=== PATIENT | female | born 1960 | race Caucasian/White ===

== ENCOUNTER 2016-08-22 18:59 | Observation (INO) ==
[2016-08-22] MEDS ORDERED: ZOFRAN IV PRN (19:57)
[2016-08-22] MEDS ORDERED: PERCOCET-10 PO PRN (19:57)
[2016-08-22] MEDS ORDERED: DOXYCYCLINE 100 MG in NS 250 ML IV SCH (20:00)
[2016-08-22] MEDS ORDERED: MOTRIN PO SCH (21:00)
[2016-08-22 21:14] LABS: AGAP 11; ALKALINE PHOSPHATASE 86 U/L (32-104); BUN 13 mg/dL (8-22); CALCIUM 9.1 mg/dL (8.8-10.2); CHLORIDE 99 mmol/L (98-107); COSMO 272; GOT 21 U/L (10-30); GPT 23 U/L (10-36); POTASSIUM 3.6 mmol/L (3.5-5.1); SODIUM 136 mmol/L (136-145); TCO2 27 mmol/L (25-35); TOTAL PROTEIN 7.7 g/dL (6.3-8.3)
[2016-08-22] MEDS: NS 1,000 ML IV SCH (22:30)
[2016-08-22] MEDS: TYLENOL PO SCH (23:18)
[2016-08-23] MEDS ORDERED: TYLENOL PO SCH
[2016-08-23] MEDS: MOTRIN PO SCH ×2 (03:21→08:53)
[2016-08-23] MEDS: NS 1,000 ML IV SCH (05:22)
[2016-08-23] MEDS: TYLENOL PO SCH (05:23)
[2016-08-23] MEDS ORDERED: DOXYCYCLINE 100 MG in NS 250 ML IV SCH (08:00)
[2016-08-23] MEDS ORDERED: TYLENOL PO PRN (08:39)
[2016-08-23] MEDS ORDERED: DOXYCYCLINE PO SCH (09:00)
--- NOTE | 2016-08-23 11:11 | HISTORY AND PHYSICAL ---
PRIMARY CARE PHYSICIAN: Dr. Estevan Arnold. CHIEF COMPLAINT: Subjective fever, headache and urinary tract infection that has progressively worsened over the past week. HISTORY OF PRESENTING ILLNESS: This is a 56-year-old female who was a direct admit from her primary care physician's office after she was seen there yesterday. She states that 1 week ago today, she started having a subjective fever around 101 and a throbbing headache. She took [id number] medications without relief. Went to [facility] ER on Saturday where she was worked up with a CT of the head, tested for strep and flu all of which were negative. States that she was told she had a urinary tract infection and was given antibiotics, muscle relaxers and pain medicine for her headache. States that she would begin to feel some better and then the headaches will return. States she vomited x2 yesterday so she saw her primary care physician who felt she needed to be a direct admit for further evaluation and treatment. PAST MEDICAL HISTORY: None. PAST SURGICAL HISTORY: x3 and an inguinal hernia repair. FAMILY HISTORY: Noncontributory. SOCIAL HISTORY: She currently lives with family. Denies any tobacco, alcohol, or illicit drug use. ALLERGIES: She has no known drug allergies. HOME MEDICATIONS: She does not take any medications typically on a routine basis. LABORATORY DATA: Obtained showed an ESR of 76. A sodium of 136, potassium 3.6, chloride 99, CO2 27, BUN of 13, creatinine of 0.8. Glucose 106. A C. reactive protein of 162.30. Free T4 of 1.30. REVIEW OF SYSTEMS: She was positive for a subjective fever, headache, nausea, vomiting. Otherwise, negative review of systems. On arrival, she had a temperature of 97.7 degrees, a pulse of 58, respirations 20, blood pressure 130/66, saturating 100% on room air.General: This is a 56-year-old female who is lying in the bed, and answers questions appropriately. HEENT: Normocephalic and atraumatic. Pupils are equal, round, reactive to light. Extraocular movements are intact. Oropharynx and nares are clear. Neck: Supple. Lungs: Clear to auscultation bilaterally with equal lung expansion and chest wall movement. Heart: With regular rate and rhythm. No murmurs, rubs, or gallops. Abdomen: Soft, nontender, nondistended. Bowel sounds are present x4 quadrants. Extremities: No clubbing, cyanosis, or edema. Neurological: Cranial nerves 2-12 appear grossly intact. ASSESSMENT: 1. Headache. 2. Nausea and vomiting. 3. Recently diagnosed UTI with current UA pending. PLAN: She was admitted for observation and placed on a regular diet. Placed on doxycycline 100 mg p.o. b.i.d., ibuprofen 800 mg p.o. q.6 hours, oxycodone 10 1 p.o. q.4 hours p.r.n., and Zofran 4 mg IV q.6 hours p.r.n. Dictated by JERSON Hopper for Ishan Momin MD cc: JERSON Hopper MD Kirk L. Jackson, MD
--- NOTE | 2016-08-23 11:22 | DISCHARGE SUMMARY ---
ADMISSION DATE: 08/22/2016 DISCHARGE DATE: 08/23/2016 ADMISSION DIAGNOSES: 1. Headache. 2. Nausea and vomiting. 3. Urinary tract infection. DISCHARGE DIAGNOSES: 1. Headache, resolved. 2. Nausea and vomiting, resolved. 3. Urinary tract infection. SUMMARY OF FINDINGS: This was a 56-year-old, female who was admitted as a direct admit from her primary care physician's office after she has had a subjective fever for approximately 1 week. Had been seen at [facility] this past Saturday after she had a throbbing headache and continued having fevers since. She was tested for a CT of the head, strep, and flu, all of which she states were negative. States she was diagnosed with a urinary tract infection at [facility] and had been on antibiotics. She continues to not feel much better with continued headaches so she saw her primary care physician yesterday who requested she be admitted as a direct admit for further evaluation and treatment. She has remained afebrile throughout her stay with us. She states her headache has resolved and is much improved. She has been tolerating a regular diet. She was changed yesterday by her primary care physician to doxycycline 100 mg p.o. b.i.d. We will continue her on that for a 7 day course treatment. She will be given a prescription for this. We will also continue the ibuprofen q.6 hours 800 mg p.r.n. She will follow up with her primary care physician in 1-2 weeks. All discharge instructions were reviewed with the patient and she verbalized understanding. This was a 35 minute discharge. Dictated by JERSON Hopper for Ishan Momin MD cc: JERSON Hopper MD Kirk L. Jackson, MD
[2016-08-23 11:46] VITALS: BP 125/51
== END 2016-08-23 13:40 | disposition home or self-care (01) ==
LOC: INTOOBSV 18:59 → P.MEDSURG 18:59
PROVIDERS: ADMIT Family Medicine